=== PATIENT | male | born 1980 | race Caucasian/White ===

== ENCOUNTER 2022-04-05 21:52 | Emergency (ER) | payer SELFPAY ==
[~2022-04-05] VITALS: Ht 170.2 cm; Wt 90.7 kg
[2022-04-05 22:00] VITALS: BP 155/92
--- NOTE | 2022-04-05 22:10 | NUR ---
BIBS FOR C/O JOINTS' PAIN X 1 WEEK. AMBULATORY, PLACED ON BED, AAOX4, BREATHING EVEN AND UNLABORED.
--- NOTE | 2022-04-05 22:15 | NUR ---
AT BED SIDE
--- NOTE | 2022-04-05 22:30 | NUR ---
Patient discharged to home in stable condition. Written and verbal after care instructions given. Patient verbalizes understanding of instruction.
== END 2022-04-05 22:31 | disposition home or self-care (01) ==
LOC: ER 22:01
DX: R20.2 Paresthesia of skin (principal)